=== PATIENT | female | born 1980 | race Caucasian/White ===

== ENCOUNTER 2023-03-01 19:41 | Emergency (ER) | payer OTHER ==
[~2023-03-01] VITALS: Ht 167.6 cm; Wt 63.0 kg
[2023-03-01] MEDS ORDERED: CYCL-309 PO (21:27)
[2023-03-01] MEDS ORDERED: IBUP-1493 PO (21:27)
[2023-03-01] MEDS ORDERED: IBUPROFEN 800 MG TAB ONE (21:51)
[2023-03-01 21:57] VITALS: BP 128/78
[2023-03-01] MEDS ORDERED: IBUPROFEN 800 MG TAB PO ONE (22:00)
== END 2023-03-01 22:00 | disposition home or self-care (01) ==
LOC: EDH 19:41
DX: M54.2 Cervicalgia (principal); V89.2XXA Person injured in unspecified motor-vehicle accident, traffic, initial encounter; Y93.I9 Activity, other involving external motion; Y92.488 Other paved roadways as the place of occurrence of the external cause; Y99.8 Other external cause status
CPT/HCPCS: 72125; 81025

== ENCOUNTER 2024-09-15 12:18 | Emergency (ER) | payer BC, OTHER ==
[~2024-09-15] VITALS: Ht 167.6 cm; Wt 63.0 kg
[~2024-09-15 12:18] MED LIST: CYCL-309 PO; IBUP-1493 PO
[2024-09-15 12:50] VITALS: BP 116/78; PULSE 71; RESP 16; TEMP 97.8; O2SAT 98
[2024-09-15 12:52] LABS: APPEARANCE,URINE CLEAR (CLEAR); BILIRUBIN,URINE NEGATIVE (NEGATIVE); COLOR,URINE COLORLESS (YELLOW); GLUCOSE, URINE (UA) NEGATIVE (NEGATIVE); KETONES,URINE NEGATIVE (NEGATIVE); LEUKOCYTE ESTERASE ,URINE NEGATIVE Leu/uL (NEGATIVE); NITRATE,URINE NEGATIVE (NEGATIVE); OCCULT BLOOD,URINE NEGATIVE (NEGATIVE); PROTEIN,URINE NEGATIVE (NEGATIVE); UROBILINOGEN,URINE 0.2 mg/dL (0.2-1.0)
[2024-09-15 12:54] LABS: BASOPHILS # (AUTO) 0.02 K/uL (0.00-0.20); BASOPHILS % (AUTO) 0.5 % (0.0-5.0); EOSINOPHILS # (AUTO) 0.15 K/uL (0.00-0.70); EOSINOPHILS % (AUTO) 3.4 % (0.0-8.0); HEMATOCRIT 44.7 % (36-48); IMMATURE GRANULOCYTE ABSOLUTE 0.01 K/uL (0-1); LYMPHOCYTES # (AUTO) 1.9 K/uL (1.0-4.8); LYMPHOCYTES % (AUTO) 42.5 % (21.0-51.0); MEAN CORPUSCULAR HEMOGLOBIN 32.3 pg (27.0-33.0); MEAN CORPUSCULAR HGB CONC 34.2 g/dL (32.0-36.0); MEAN CORPUSCULAR VOLUME 94.5 fL (79-99); MONOCYTES # (AUTO) 0.5 K/uL (0.1-1.0); MONOCYTES % (AUTO) 10.3 % (3.0-13.0); NEUTROPHILS # (AUTO) 1.9 K/uL (1.8-7.7); NEUTROPHILS % (AUTO) 43.1 % (40.0-77.0); PLATELET COUNT (AUTO) 296 K/uL (130-400); RED BLOOD CELL COUNT(AUTO) 4.73 MIL/uL (4.00-5.50); RED CELL DISTRIBUTION WIDTH 12.2 % (11.0-15.5); WHITE BLOOD COUNT (AUTO) 4.4 K/uL (4.8-10.8)
[2024-09-15 12:56] LABS: ADD UA MICROSCOPIC NO
[2024-09-15 12:58] LABS: HCG,QUALITATIVE URINE NEGATIVE (NEGATIVE)
[2024-09-15 13:02] LABS: CREATININE 0.6 mg/dL (0.5-1.0); POTASSIUM 3.6 mmol/L (3.5-5.1)
--- NOTE | 2024-09-15 13:38 | ERN ---
General Chief Complaint: Painful Urination Stated Complaint: FAILED OUT TX / UTI Time Seen by MD: 13:02 Time Seen by Midlevel: 13:02 Source: patient History of Present Illness Initial Comments Patient is a 44-year-old female with no significant past medical history presenting to the emergency department with dysuria. Patient was diagnosed with a urinary tract infection back on September 04 and was started on Macrobid. She does report developing an allergic reaction to this medication so she was switched over to Bactrim. She reports finishing her Bactrim antibiotic two days ago however she still feels burning while urination. Denies any abdominal pain, fever, chills, nausea, vomit, or any other symptoms at this time. Patient be lieves her urinary tract infection did not fully clear. Allergies: Coded Allergies: amoxicillin (Unverified Allergy, Unknown, 03/01/23) Home Meds Active Scripts Cyclobenzaprine HCl (Cyclobenzaprine HCl) 10 Mg Tablet, 10 MG PO TIDP PRN for spasm, #30 TAB Prov:MERISSA CARBAJAL MD 03/01/23 Ibuprofen (Motrin/Advil) 800 Mg Tab, 800 MG PO TIDP PRN for PAIN, #30 TAB Prov:MERISSA CARBAJAL MD 03/01/23 Past Medical History Past Medical History: Other Medical History Other: KVNG'S DISEASE Past Surgical History: Other, None Surgical History Other: KNEE Social History Social History: Negative Female( History) LMP: Aug 26, 2024 ROS Dictation CONSTITUTIONAL: Negative except for HPI HEAD/FACE: Negative except for HPI EENT: Negative except for HPI RESPIRATORY: Negative except for HPI GASTROINTESTINAL/ABDOMINAL: Negative except for HPI GENITOURINARY: Negative except for HPI MUSCULOSKELETAL: Negative except for HPI INTEGUMENTARY: Negative except for HPI NEUROLOGICAL/PSYCH: Negative except for HPI HEMATOLOGIC/LYMPHATIC: Negative except for HPI All Systems Negative, Except as noted above. 13 point review of systems assessed and all negative except for above. Physical Exam Physical Exam Dictation PHYSICAL EXAM: GENERAL: alert,, awake oriented x 3 HEENT: EOMI, Sclera non icteric, moist mucosa NECK: Supple, no JVD, trachea midline LUNGS: Clear breath sounds bilaterally. No wheezes HEART: Regular rate and rhythm. Normal S1 and S2, without murmurs ABD: Abdomen soft, nontender. Bowel sounds present EXT: No clubbing or cyanosis, NEURO: Alert and oriented to person, follows commands Results Laboratory and Microbiology Lab and Micro Result Laboratory Tests Test 09/15/24 12:38 09/15/24 12:50 Urine Color COLORLESS (YELLOW) Urine Appearance CLEAR (CLEAR) Urine pH 7.0 (5.0-8.0) Urine Specific [place] 1.003 (1.001-1.031) Urine Protein NEGATIVE mg/dL (NEGATIVE) Urine Glucose (UA) NEGATIVE mg/dL (NEGATIVE) Urine Ketones NEGATIVE mg/dL (NEGATIVE) Urine Occult Blood NEGATIVE (NEGATIVE) Urine Nitrate NEGATIVE (NEGATIVE) Urine Bilirubin NEGATIVE mg/dL (NEGATIVE) Urine Urobilinogen 0.2 mg/dL (0.2-1.0) Urine Leukocyte Esterase NEGATIVE Paras/uL Urine HCG, Qualitative NEGATIVE (NEGATIVE) White Blood Count 4.4 K/uL (4.8-10.8) L Red Blood Count 4.73 MIL/uL (4.00-5.50) Hemoglobin 15.3 g/dL (12.0-16.0) Hematocrit 44.7 % (36-48) Mean Corpuscular Volume 94.5 fL (79-99) Mean Corpuscular Hemoglobin 32.3 pg (27.0-33.0) Mean Corpuscular Hemoglobin Concent 34.2 g/dL (32.0-36.0) Red Cell Distribution Width 12.2 % (11.0-15.5) Platelet Count 296 K/uL (130-400) Mean Platelet Volume 9.3 fL (7.5-10.5) Immature Granulocyte % (Auto) 0.2 % (0-1) Neutrophils (%) (Auto) 43.1 % (40.0-77.0) Lymphocytes (%) (Auto) 42.5 % (21.0-51.0) Monocytes (%) (Auto) 10.3 % (3.0-13.0) Eosinophils (%) (Auto) 3.4 % (0.0-8.0) Basophils (%) (Auto) 0.5 % (0.0-5.0) Neutrophils # (Auto) 1.9 K/uL (1.8-7.7) Lymphocytes # (Auto) 1.9 K/uL (1.0-4.8) Monocytes # (Auto) 0.5 K/uL (0.1-1.0) Eosinophils # (Auto) 0.15 K/uL (0.00-0.70) Basophils # (Auto) 0.02 K/uL (0.00-0.20) Absolute Immature Granulocyte (auto 0.01 K/uL (0-1) Nucleated Red Blood Cells 0.0 % (0.0-0.19) Sodium Level 141 mmol/L (136-145) Potassium Level 3.6 mmol/L (3.5-5.1) Chloride Level 103 mmol/L (101-111) Carbon Dioxide Level 33 mmol/L (21-32) H Blood Urea Nitrogen 5 mg/dL (7-18) L Creatinine 0.6 mg/dL (0.5-1.0) Glomerular Filtration Rate Calc 113 mL/min (>90) Random Glucose 66 mg/dL (70-105) L Total Calcium 9.1 mg/dL (8.5-10.1) Labs Reviewed?: Yes MDM MDM: Patient is a 44-year-old female with no significant past medical history presenting to the emergency department with dysuria. Patient was diagnosed with a urinary tract infection back on September 04 and was started on Macrobid. She does report developing an allergic reaction to this medication so she was switched over to Bactrim. She reports finishing her Bactrim antibiotic two days ago however she still feels burning while urination. Denies any abdominal pain, fever, chills, nausea, vomit, or any other symptoms at this time. Patient believes her urinary tract infection did not fully clear. On physical examination patient is in no acute distress. She has no CVA tenderness. Her abdominal examination is unremarkable. Her CBC and chemistries unremarkable. There was no leukocytosis. Her urinalysis does not show any evidence of infection. She was previously being treated for a yeast infection but she states she only took half treatment. She will be given one dose of fluconazole in the emergency department and will be discharged home with supportive management. She was to follow up with your PCP in48 hours return to the ER for any new or worsening symptoms. Differential diagnosis: Urinary tract infection, pyelonephritis, yeast infection There are no social concerns with this patient. Prescription drug management Prescriptions will include: None Medical management and examination interpretation discussions were had by me with other qualified healthcare professionals as indicated for the patient's care. ED Course Orders Procedure Category Date Status Time Urinalysis Profile LAB 09/15/24 Complete 12:26 ,Urine Test LAB 09/15/24 Complete 12:26 Cbc With Differential LAB 09/15/24 Complete 12:36 Basic Metabolic Panel LAB 09/15/24 Complete 12:36 Fluconazole 100 Mg PHA 09/15/24 Complete Tab (Diflucan 100 Mg 13:30 Current Medications Medications (Trade) Dose Ordered Sig/Ana Route PRN Reason Start Time Stop Time Status Last Admin Dose Admin Fluconazole (DiFLUCan 100 mg TAB) 150 mg ONCE ONCE PO 09/15/24 13:30 09/15/24 13:31 DC Vital Signs Date Time Temp Pulse Resp B/P (MAP) Pulse Ox O2 Delivery O2 Flow Rate FiO2 09/15/24 12:50 97.9 71 16 116/78 98 Room Air* 0 21 09/15/24 12:21 97.9 71 16 116/78 98 Room Air 0 DX & DISP Disposition: Discharge Departure Impression: Primary Impression: Dysuria Condition: Stable Additional Instructions: Your blood work today is unremarkable. Your urinalysis does not show any evidence of infection. You were given a one time dose of Flucanazole in the ED. Follow up with your PCP on Tuesday for further evaluation. Return to the ED if you develop any new or worsening symptoms. Referrals: ISAIAS GEE (PCP) Time of Disposition: 13:35 I have reviewed the case, and I agree with, Diagnosis and Plan VEGA HERNANDEZ Sep 15, 2024 13:38
[2024-09-15] MEDS: fluCONazole 100 MG TAB PO ONE (14:06)
== END 2024-09-15 14:10 | disposition home or self-care (01) ==
LOC: EDH 12:18
DX: R30.0 Dysuria (principal); Z79.899 Other long term (current) drug therapy; Z88.0 Allergy status to penicillin; Z98.890 Other specified postprocedural states
CPT/HCPCS: 36415; 80048; 81003; 81025; 85025; 99283

== ENCOUNTER 2025-03-11 13:36 | Emergency (ER) | payer BC, OTHER ==
[~2025-03-11] VITALS: Ht 167.6 cm; Wt 62.6 kg
[2025-03-11] MEDS: TETRACAINE HCL 0.5% 4 ML OPHTH SOLN OP STA (14:18)
[2025-03-11] MEDS: FLUORESCEIN SODIUM 1 STRIP STRIP OP STA (14:19)
[2025-03-11] MEDS ORDERED: VALA100031 PO (14:56)
--- NOTE | 2025-03-11 14:57 | ERN ---
ED Note History of Present Illness Stated Complaint: RT EYE SWELLING/PAIN Chief Complaint: Eye Problems Time Seen by MD: 13:39 Time Seen by Midlevel: 13:40 Dictation: 44-year-old female coming in complaining of pain to the right upper eyelid with mild redness. Patient states this started about 1:00 a.m. in the morning. Patient states seven years ago she had shingles in her eye and was worried so decided to come and be evaluated. Patient states she has no vision changes, no drainage. Allergies: Coded Allergies: amoxicillin (Unverified Allergy, Unknown, 03/01/23) Home Meds Active Scripts Valacyclovir HCl (Valacyclovir) 1,000 Mg Tablet, 1 TAB PO TID for 7 Days, #21 TAB 0 Refills Prov:MINDI UNDERWOOD NP 03/11/25 Cyclobenzaprine HCl (Cyclobenzaprine HCl) 10 Mg Tablet, 10 MG PO TIDP PRN for spasm, #30 TAB Prov:MERISSA CARBAJAL MD 03/01/23 Ibuprofen (Motrin/Advil) 800 Mg Tab, 800 MG PO TIDP PRN for PAIN, #30 TAB Prov:MERISSA CARBAJAL MD 03/01/23 Past Medical History Past Medical History: Other Additional Past Medical Hx: KVNG'S DISEASE Surgical History: Other, None Surgical History Other: KNEE Social History: Negative LMP: February 14, 2025 Review of System Dictation Constitutional: Negative for fever,chills, and weight loss Eyes: Negative for injury, pain to the right upper eyelid ENT: Negative for injury,pain or swelling Cardiovascular: Negative for chest pain, palpitations, and edema Respiratory: Negative for shortness of breath, cough, and wheezing, Abdomen/GI: Negative for abdominal pain, nausea, vomiting, diarrhea, and constipation Back: Negative for injury and pain : Negative for injury, bleeding and discharge MS/Extremity: Negative for injury and deformity Skin: Negative for rash, and discoloration Neuro: Negative for headache, weakness, numbness, tingling, and seizure Psych: Negative for suicide ideation, homicidal ideation, and hallucinations Review of Systems: was completed Initial Vital Sign VS Vital Signs Date Time Temp Pulse Resp B/P (MAP) Pulse Ox O2 Delivery O2 Flow Rate FiO2 03/11/25 13:37 98.1 70 16 116/72 96 Room Air 0 03/11/25 13:45 21 Physical Exam Dictation General: awake, alert, NAD Head/Face: Normocephalic, atraumatic Eyes: PERRL, EOMI, vision at baseline no pain on EOM. There is no drainage, mild swelling noted to the upper eyelid. On eye exam there are no dendritic lesions noted. ENT: oral cavity clear, TMs clear, no signs of infection Neck: Trachea midline, supple, no nuchal rigidity Cardiovascular: RRR, normal S1/S2, No MRGs, no JVD Respiratory: CTAB, no respiratory distress, No rales or wheezes Abdomen: Soft, non-tender, non-distended, normal bowel sounds, no guarding or rebound. Skin: Warm, dry, normal turgor, no rash MS/Extremity: Pulses equal, no cyanosis, neurovascular intact, FROM Neuro: COAx4, GCS 15, strength 5/5, CN 2-12 intact, normal cerebellar exam, normal gait, Psych: Normal behavior, mood, and affect normal ED Course ED Course Orders Procedure Category Date Status Time Tetracaine Hcl PHA 03/11/25 Complete (Pontocaine 0.5% 14:14 Fluorescein Sodium PHA 03/11/25 Complete (Ibiqn-T-Bnqdz At) 14:14 Hydrocodone/Apap PHA 03/11/25 Complete /325 ([place] 5/325mg) 14:46 Current Medications Medications (Trade) Dose Ordered Sig/Ana Route PRN Reason Start Time Stop Time Status Last Admin Dose Admin Acetaminophen/ Hydrocodone Bitart (NORco 5/325MG) 1 tab ONCE STAT PO 03/11/25 14:46 03/11/25 14:50 DC 03/11/25 15:09 Fluorescein Sodium (Ymqmp-M-Tyqgm At) 1 strip ONCE STAT OP 03/11/25 14:14 03/11/25 14:16 DC 03/11/25 14:19 Tetracaine HCl (Pontocaine 0.5% Ophth Soln) 1 OR 2 DROPS ONCE STAT OP 03/11/25 14:14 03/11/25 14:16 DC 03/11/25 14:18 Vital Signs Date Time Temp Pulse Resp B/P (MAP) Pulse Ox O2 Delivery O2 Flow Rate FiO2 03/11/25 15:13 98.2 72 16 112/69 98 Room Air* 0 21 03/11/25 13:45 98.2 74 16 119/65 98 Room Air* 0 21 03/11/25 13:37 98.1 70 16 116/72 96 Room Air 0 Medical Decision Making MDM MDM: 44-year-old female coming in complaining of pain to the right upper eyelid with mild redness. Patient states this started about 1:00 a.m. in the morning. Patient states seven years ago she had shingles in her eye and was worried so decided to come and be evaluated. Patient states she has no vision changes, no drainage. Differential diagnosis: Shingles, stye, corneal abrasion Rationale: Tests considered and ordered secondary to shared decision making include: Previous outside records reviewed: Old ER visits. Risk of complication and/or morbidity or mortality of patient management: None Medications-Per medication reconciliation Need for hospitalization: Patient does not meet criteria for hospitalization. Need for emergency major/minor surgery: No There are no social concerns with this patient. Prescription drug management Prescriptions will include symptomatic care Patient's prior external medical records from other ER visits were reviewed by me as indicated. Prior testing and results from previous visits were reviewed. Prior tests were taken into account with medical decision making and resource utilization, independent historian/historians were used to obtain complete me dical history. I independently interpreted the test that were performed, results were reviewed by me and considered findings on radiology if ordered. Medical management and examination interpretation discussions were had by me with other qualified healthcare professionals as indicated for the patient's care. DX & DISP Disposition: Discharge Departure Impression: Primary Impression: Pain, eyelid Condition: Stable Scripts Valacyclovir HCl (Valacyclovir) 1,000 Mg Tablet 1 TAB PO TID for 7 Days, #21 TAB 0 Refills Prov: MINDI UNDERWOOD NP 03/11/25 Additional Instructions: Please follow up with [facility] tomorrow. Return for worsening symptoms. Referrals: ISAIAS GEE (PCP) Time of Disposition: 14:57 I have reviewed the case, and I agree with, Diagnosis and Plan I performed the substantive portion of the visit. I have reviewed and personally made and approve the management plan that is documented in the notes by myself or the BRIA. I acknowledge full responsibility for the patient's management plan. MINDI UNDERWOOD NP March 11, 2025 14:57 OVIDIO CRUZ MD March 11, 2025 18:37
[2025-03-11] MEDS: HYDROcodone/APAP 5/325 1 TAB TABLET PO STA (15:09)
[2025-03-11 15:13] VITALS: BP 112/69; PULSE 72; RESP 16; TEMP 98.3; O2SAT 98
== END 2025-03-11 15:21 | disposition home or self-care (01) ==
LOC: EDH 13:36
DX: H57.11 Ocular pain, right eye (principal); Z79.624 Long term (current) use of inhibitors of nucleotide synthesis; Z88.0 Allergy status to penicillin
CPT/HCPCS: 99283